=== PATIENT | female | born 1935 | race African-American/Black ===

== ENCOUNTER → 2020-05-22 | Outpatient (CLI) | payer OTHER ==
[~2020-05-22] MED LIST: AZITHROMYCIN500 MG PO; BYDUREON P2 MG/0.65 SUBQ; GLUCOPHAGE1000 MG PO; MACROBID 100 M100 M1 PO; NOHOMEMEDICATIONS; PYRIDIUM100 MG PO; SIMVASTATIN40 MG PO; WARFARIN SODIUM5 MG PO
== END ==
LOC: SJCVC 12:21
PROVIDERS: ATTEND Internal Medicine
DX: R94.31 Abnormal electrocardiogram [ECG] [EKG] (principal); I25.10 Atherosclerotic heart disease of native coronary artery without angina pectoris; I10 Essential (primary) hypertension; I48.3 Typical atrial flutter; E78.5 Hyperlipidemia, unspecified; E11.8 Type 2 diabetes mellitus with unspecified complications; E78.00 Pure hypercholesterolemia, unspecified; Z79.01 Long term (current) use of anticoagulants; Z79.84 Long term (current) use of oral hypoglycemic drugs; Z79.899 Other long term (current) drug therapy; Z82.49 Family history of ischemic heart disease and other diseases of the circulatory system